=== PATIENT | female | born 1990 | race African-American/Black ===

== ENCOUNTER 2016-05-09 09:41 | Emergency (ER) | payer MEDICAID, OTHER ==
[~2016-05-09] VITALS: Ht 152.4 cm; Wt 63.0 kg
[~2016-05-09 09:41] MED LIST: HYDR-3533 PO; PERC5TAB12 PO
[2016-05-09 09:52] VITALS: BP 118/90; PULSE 88; RESP 16; TEMP 99.1; O2SAT 100
[2016-05-09] MEDS ORDERED: SODIUM CHLOR 0.9% 1000 ML INJ 1,000 ML IV ONE (11:00)
[2016-05-09] MEDS ORDERED: ONDANSETRON HCL 4 MG/2 ML VIAL IV PUSH ONE (11:00)
[2016-05-09 11:08] LABS: GLUCOSE,URINE NEG (NEG); KETONE, URINE NEG (NEG); NITRITE,URINE NEG (NEG)
[2016-05-09 11:13] LABS: AUTOMATED NEUTROPHIL # 6.6 TH/MM3 (1.8-7.7); BASOPHIL # 0.1 TH/MM3 (0-0.2); BASOPHIL % 0.6 % (0.0-2.0); EOSINOPHIL # 0.1 TH/MM3 (0-0.4); EOSINOPHIL % 0.6 % (0.0-4.0); HEMATOCRIT 40.4 % (35.0-46.0); LYMPH % 19.1 % (9.0-44.0); LYMPHOCYTE # 1.7 TH/MM3 (1.0-4.8); MEAN CELL VOLUME 74.2 FL (80.0-100.0); MEAN CORPUSCULAR HEMOGLOBIN 25.1 PG (27.0-34.0); MEAN CORPUSCULAR HGB CONC 33.9 % (32.0-36.0); MONO % 3.1 % (0.0-8.0); NEUT % 76.6 % (16.0-70.0); PLATELET COUNT 238 TH/MM3 (150-450); RED BLOOD COUNT 5.44 MIL/MM3 (4.00-5.30); RED CELL DISTRIBUTION WIDTH 13.7 % (11.6-17.2); WHITE BLOOD COUNT 8.8 TH/MM3 (4.0-11.0)
[2016-05-09 11:15] LABS: BLOOD, URINE MOD (NEG)
[2016-05-09 11:19] LABS: MUCUS URINE FEW /lpf (OCC); URINE COLOR YELLOW (YELLW/STRAW); WBC, URINE 0-2 /hpf (0-5)
[2016-05-09 11:19] LABS: CHLORIDE 107 MEQ/L (98-107); POTASSIUM 3.5 MEQ/L (3.5-5.1); SODIUM (NA) 142 MEQ/L (136-145)
[2016-05-09 11:20] LABS: BACTERIA, URINE RARE /hpf; COMMENT (UR) CULT NOT INDICATED; CULTURE IF INDICATED CULT NOT INDICATED; SQUAMOUS EPITHELIAL CELL URINE 0-5 /hpf (0-5)
[2016-05-09 11:25] LABS: HEMO FLAGS DIFF FINAL
[2016-05-09 11:28] LABS: ANION GAP 9 MEQ/L (5-15); BICARBONATE 26.5 MEQ/L (21.0-32.0); BLOOD UREA NITROGEN 13 MG/DL (7-18)
[2016-05-09 11:31] LABS: ALT (GPT) 18 U/L (10-53); AST (GOT) 20 U/L (15-37); GLOMERULAR FILTRATION RATE 118 ML/MIN (>89)
[2016-05-09 11:32] LABS: TOTAL BILIRUBIN ADULT 0.7 MG/DL (0.2-1.0)
[2016-05-09 11:34] LABS: ALKALINE PHOSPHATASE 80 U/L (45-117)
--- NOTE | 2016-05-09 12:04 | PD ---
HPI Chief Complaint: GI Complaint Time Seen by Provider: 10:44 Travel History International Travel<30 days: No Contact w/Intl Traveler<30days: No Traveled to known affect area: No History of Present Illness HPI Patient is a 25 year old female who comes in complaining of nausea. She says it started last night and she tried to make herself vomit without success. She says she last moved her bowels 2 days ago and it was normal. She is not having any abdominal pain. Her LMP was April 12. She denies dysuria or discharge. PFSH Past Medical History Anxiety: Yes Depression: No Cancer: No Cardiovascular Problems: No Diabetes: No Diminished Hearing: No Endocrine: No Genitourinary: No Hepatitis: No Hiatal Hernia: No Immune Disorder: No Musculoskeletal: No Neurologic: No Psychiatric: No Reproductive: No Respiratory: No Immunizations Current: Yes Migraines: Yes Thyroid Disease: No Tetanus Vaccination: < 5 Years Influenza Vaccination: Yes ?: Unknown : 5 Para: 1 Miscarriage: 2 : 1 Past Surgical History AICD: No Joint Replacement: No Pacemaker: No Other Surgery: Yes (FLEXOR TENDON R HAND) Social History Alcohol Use: Yes (social) Tobacco Use: No Substance Use: No Allergies-Medications (Allergen,Severity, Reaction): Coded Allergies: No Known Allergies (Verified , 05/09/16) Reported Meds & Prescriptions Reported Meds & Active Scripts Active Zofran Odt (Ondansetron Odt) 4 Mg Tab 4 Mg SL Q6HR PRN Review of Systems Except as stated in HPI: all other systems reviewed are Neg General / Constitutional: No: Fever, Chills HENT: No: Headaches, Lightheadedness Cardiovascular: No: Chest Pain or Discomfort Respiratory: No: Shortness of Breath Gastrointestinal: Positive: Nausea, No: Vomiting, Abdominal Pain Genitourinary: No: Dysuria, Flank Pain Musculoskeletal: No: Edema, Pain Skin: No Rash, No Change in Pigmentation Neurologic: No: Weakness, Dizziness Physical Exam Narrative GENERAL: Awake and alert in no acute distress. SKIN: Warm and dry. HEAD: Atraumatic. Normocephalic. EYES: Pupils equal and round. No scleral icterus. ENT: . Mucous membranes pink and moist. NECK: Trachea midline. No JVD. CARDIOVASCULAR: Regular rate and rhythm. No murmur appreciated. RESPIRATORY: No accessory muscle use. Clear to auscultation. Breath sounds equal bilaterally. GASTROINTESTINAL: Abdomen soft, non-tender, nondistended. No CVA tenderness. MUSCULOSKELETAL: No obvious deformities. No clubbing. No cyanosis. No edema. NEUROLOGICAL: Awake and alert. No obvious cranial nerve deficits. Motor grossly within normal limits. Normal speech. PSYCHIATRIC: Appropriate mood and affect; insight and judgment normal. Data Data Last Documented VS Vital Signs Date Time Temp Pulse Resp B/P Pulse Ox O2 Delivery O2 Flow Rate FiO2 05/09/16 12:39 98 17 113/80 100 05/09/16 09:52 99.1 Orders Urinalysis - C+S If Indicated (05/09/16 09:56) Ed Urine Pregnancytest Poc (05/09/16 09:56) Complete Blood Count With Diff (05/09/16 10:51) Comprehensive Metabolic Panel (05/09/16 10:51) Sodium Chlor 0.9% 1000 Ml Inj (Ns 1000 M (05/09/16 11:00) Ondansetron Inj (Zofran Inj) (05/09/16 11:00) Labs Laboratory Tests Test 05/09/16 05/09/16 10:50 11:00 Urine Collection Type Urine Color YELLOW Urine Turbidity CLEAR Urine pH 6.0 Urine Specific [place] 1.030 Urine Protein NEG mg/dL Urine Glucose (UA) NEG mg/dL Urine Ketones NEG mg/dL Urine Occult Blood MOD Urine Nitrite NEG Urine Bilirubin NEG Urine Leukocyte Esterase NEG Urine RBC 4-9 /hpf Urine WBC 0-2 /hpf Urine Squamous Epithelial 0-5 /hpf Cells Urine Bacteria RARE /hpf Urine Mucus FEW /lpf Microscopic Urinalysis Comment CULT NOT INDICATED White Blood Count 8.8 TH/MM3 Red Blood Count 5.44 MIL/MM3 Hemoglobin 13.7 GM/DL Hematocrit 40.4 % Mean Corpuscular Volume 74.2 FL Mean Corpuscular Hemoglobin 25.1 PG Mean Corpuscular Hemoglobin 33.9 % Concent Red Cell Distribution Width 13.7 % Platelet Count 238 TH/MM3 Mean Platelet Volume 9.7 FL Neutrophils (%) (Auto) 76.6 % Lymphocytes (%) (Auto) 19.1 % Monocytes (%) (Auto) 3.1 % Eosinophils (%) (Auto) 0.6 % Basophils (%) (Auto) 0.6 % Neutrophils # (Auto) 6.6 TH/MM3 Lymphocytes # (Auto) 1.7 TH/MM3 Monocytes # (Auto) 0.3 TH/MM3 Eosinophils # (Auto) 0.1 TH/MM3 Basophils # (Auto) 0.1 TH/MM3 CBC Comment DIFF FINAL Differential Comment Sodium Level 142 MEQ/L Potassium Level 3.5 MEQ/L Chloride Level 107 MEQ/L Carbon Dioxide Level 26.5 MEQ/L Anion Gap 9 MEQ/L Blood Urea Nitrogen 13 MG/DL Creatinine 0.73 MG/DL Estimat Glomerular Filtration 118 ML/MIN Rate Random Glucose 88 MG/DL Calcium Level 8.3 MG/DL Total Bilirubin 0.7 MG/DL Aspartate Amino Transf 20 U/L (AST/SGOT) Alanine Aminotransferase 18 U/L (ALT/SGPT) Alkaline Phosphatase 80 U/L Total Protein 7.5 GM/DL Albumin 3.4 GM/DL [facility] Medical Decision Making Medical Screen Exam Complete: Yes Emergency Medical Condition: Yes Medical Record Reviewed: Yes Differential Diagnosis Gastroenteritis versus UTI versus pyelonephritis versus gastritis Narrative Course Patient is a 25-year-old female who comes in complaining of nausea. Exam shows no tenderness to the abdomen on palpation. Labs sent show no acute abnormalities. Urinalysis is positive for blood. It is very likely that patient is about to start her menstrual period. In with improvement of her symptoms. She is able to tolerate water without vomiting. Patient will be discharged with a prescription for a few Zofran. Advised to follow-up with her doctor. She says she has a referral to gastroenterology, I advised her to make this appointment. Advised to return to the ED as needed for any worsening symptoms. Diagnosis Primary Impression: Nausea Patient Instructions: Acute Nausea and Vomiting (ED), General Instructions Additional Instructions: Follow up with your doctor and gastroenterology. Eat a bland diet and drink plenty of fluids. You can take Zofran as needed for nausea. Return to the ED as needed for any worsening symptoms. Scripts Ondansetron Odt (Zofran Odt)4 Mg Tab4 Mg SL Q6HR PRN (Nausea/Vomiting) #10 TAB Ref 0 Prov:Lamar Zamora MD 05/09/16 Disposition: 01 DISCHARGE HOME Condition: Stable Lamar Zamora MD May 09, 2016 12:04
[2016-05-09] MEDS ORDERED: ZOFR4TAB3 SL (12:17)
[2016-05-09 12:39] VITALS: BP 113/80
== END 2016-05-09 12:44 | disposition home or self-care (01) ==
LOC: PHED 09:41
DX: R11.0 Nausea (principal); Z86.69 Personal history of other diseases of the nervous system and sense organs; Z86.59 Personal history of other mental and behavioral disorders
CPT/HCPCS: 80053; 81001; 84703; 85025; 96361; 96374; 99283; J2405; J7030

== ENCOUNTER 2016-10-21 03:07 | Emergency (ER) | payer OTHER, MEDICAID ==
[~2016-10-21] VITALS: Ht 152.4 cm; Wt 68.5 kg
[~2016-10-21 03:07] MED LIST changes: -HYDR-3533 PO; -PERC5TAB12 PO; +ZOFR4TAB3 SL
[2016-10-21 03:15] VITALS: BP 102/69; PULSE 96; RESP 18; TEMP 98.4; O2SAT 100
[2016-10-21] MEDS ORDERED: PREN1TAB58 PO (03:33)
[2016-10-21 03:45] VITALS: BP 106/77; PULSE 97; RESP 16; O2SAT 98
--- NOTE | 2016-10-21 04:07 | PD ---
HPI Chief Complaint: Cold / Flu Symptoms Time Seen by Provider: 03:58 Travel History International Travel<30 days: No Contact w/Intl Traveler<30days: No Traveled to known affect area: No History of Present Illness HPI 26 year-old female presents to the emergency department by private transportation for complaint of cold symptoms. Patient has had upper respiratory symptoms for the past few days and was told by her etl lead she could take Tylenol. Patient states she's taken a dose of Tylenol and does not feel improved. Patient complains of nasal congestion sore throat and nonproductive cough. No report of shortness of breath or wheezing. No report of nausea vomiting area no report of abdominal pain. No reported dysuria frequency urgency or flank pain. No report of vaginal bleeding or vaginal discharge. Patient reports she is 3 para 2 AB 0. PFSH Past Medical History Narrative Medical Anxiety, migraines; flexor tendon repair; no tobacco use nursing notes reviewed Anxiety: Yes Depression: No Cancer: No Cardiovascular Problems: No Diabetes: No Diminished Hearing: No Endocrine: No Genitourinary: No Hepatitis: No Hiatal Hernia: No Immune Disorder: No Musculoskeletal: No Neurologic: No Psychiatric: No Reproductive: No Respiratory: No Immunizations Current: Yes Migraines: Yes Thyroid Disease: No Influenza Vaccination: Yes ?: LMP: 06/24/16 : 4 Para: 2 Miscarriage: 1 : 1 Past Surgical History AICD: No Joint Replacement: No Pacemaker: No Other Surgery: Yes (FLEXOR TENDON R HAND) Social History Alcohol Use: No Tobacco Use: No Substance Use: No Allergies-Medications (Allergen,Severity, Reaction): Coded Allergies: No Known Allergies (Verified , 10/21/16) Reported Meds & Prescriptions Reported Meds & Active Scripts Active Zofran Odt (Ondansetron Odt) 4 Mg Tab 4 Mg SL Q6HR PRN Reported Vitamin Formula Tb ( Vit/Iron Fumarate/FA) 1 Each Tablet 1 Tab PO DAILY Review of Systems Except as stated in HPI: all other systems reviewed are Neg General / Constitutional: No: Fever, Chills HENT: Positive: Sore Throat, Rhinorrhea, Congestion Cardiovascular: No: Chest Pain or Discomfort Respiratory: Positive: Cough, No: Shortness of Breath, Wheezing, Pleuritic Pain Gastrointestinal: No: Nausea, Vomiting, Diarrhea, Abdominal Pain Genitourinary: No: Dysuria, Pelvic Pain, Flank Pain, Discharge, Vaginal Bleeding Musculoskeletal: No: Myalgias, Arthralgias Skin: No Rash Neurologic: No: Weakness Psychiatric: No: Anxiety Endocrine: No: Heat Intolerance Hematologic/Lymphatic: No: Easy Bruising Physical Exam Narrative GENERAL: Well-developed well-nourished female in no acute distress no respiratory distress SKIN: Warm and dry. HEAD: Normocephalic. EYES: No scleral icterus. No injection or drainage. ENT mucous members moist airway is patent mild posterior pharyngeal erythema no exudate of change no edema tympanic membranes are redness dullness or loss of landmarks NECK: Supple, trachea midline. No JVD or lymphadenopathy. CARDIOVASCULAR: Regular rate and rhythm without murmurs, gallops, or rubs. RESPIRATORY: Breath sounds equal bilaterally. No accessory muscle use. GASTROINTESTINAL: Abdomen soft, non-tender, nondistended. Nontender to palpation heart tones 156. MUSCULOSKELETAL: No cyanosis, or edema. BACK: Nontender without obvious deformity. No CVA tenderness. Data Data Last Documented VS Vital Signs Date Time Temp Pulse Resp B/P Pulse Ox O2 Delivery O2 Flow Rate FiO2 10/21/16 04:45 95 16 102/65 100 Room Air 10/21/16 03:15 98.4 Orders Group A Rapid Strep Screen (10/21/16 04:10) Strep Culture (Group A) (10/21/16 04:12) [facility] Medical Decision Making Medical Screen Exam Complete: Yes Emergency Medical Condition: Yes Medical Record Reviewed: Yes Interpretation(s) RSA: negative Differential Diagnosis Viral syndrome, sinusitis, bronchitis, pneumonia, UTI Narrative Course Patient was sore throat with recent URI symptoms; rapid strep antigen and specimen collected Patient was stable vital signs; heart tones 156 Patient aware that rapid strep test is negative: Patient feeling well. Patient is stable for outpatient management. Diagnosis Primary Impression: Viral syndrome Additional Impression: Qualified Code: Z3A.15 - 15 weeks gestation of Referrals: Personnel Officer call for appointment Patient Instructions: General Instructions Departure Forms: Tests/Procedures, Work Release Special Instructions: no work x 2 days Additional Instructions: Increase fluid hydration Use [id number] saline nasal drops for nasal congestion as needed Take acetaminophen/Tylenol as often as every 4-6 hours as needed for fever 100.4 F or greater or for minor discomfort Use cool mist vaporizer at bedside Follow-up with primary care provider call office in a.m. to schedule follow-up appointment No work 2 days Continue vitamins daily Return to the emergency department for change in condition or any concerns such as fever or pain Med/Other Pt SpecificInfo: No Change to Meds Disposition: 01 DISCHARGE HOME Condition: Stable Joanne Monae MD Oct 21, 2016 04:07
[2016-10-21 04:45] VITALS: BP 102/65; PULSE 95; RESP 16; O2SAT 100
== END 2016-10-21 04:55 | disposition home or self-care (01) ==
LOC: PHED 03:07
DX: O98.512 Other viral diseases complicating pregnancy, second trimester (principal); O99.512 Diseases of the respiratory system complicating pregnancy, second trimester; B34.9 Viral infection, unspecified; J02.9 Acute pharyngitis, unspecified; Z3A.15 15 weeks gestation of pregnancy
CPT/HCPCS: 87081; 87880; 99283

== ENCOUNTER 2016-11-03 10:12 | Emergency (ER) | payer OTHER, MEDICAID ==
[~2016-11-03] VITALS: Ht 152.4 cm; Wt 68.5 kg
[~2016-11-03 10:12] MED LIST changes: +PREN1TAB58 PO
[2016-11-03 10:15] VITALS: BP 110/72; PULSE 110; RESP 18; TEMP 98.5; O2SAT 100
[2016-11-03] MEDS ORDERED: TYLE325T PO (10:21)
[2016-11-03] MEDS ORDERED: SODIUM CHLOR 0.9% 1000 ML INJ 1,000 ML IV ONE (10:45)
[2016-11-03 11:17] LABS: AUTOMATED NEUTROPHIL # 4.9 TH/MM3 (1.8-7.7); BACTERIA, URINE FEW /hpf; BASOPHIL % 0.4 % (0.0-2.0); BLOOD, URINE NEG (NEG); EOSINOPHIL # 0.3 TH/MM3 (0-0.4); EOSINOPHIL % 3.8 % (0.0-4.0); GLUCOSE,URINE NEG (NEG); HEMO FLAGS DIFF FINAL; HYALINE CAST, URINE 2 /lpf (RARE); KETONE, URINE NEG (NEG); LYMPH % 17.1 % (9.0-44.0); LYMPHOCYTE # 1.2 TH/MM3 (1.0-4.8); MEAN CELL VOLUME 74.7 FL (80.0-100.0); MEAN CORPUSCULAR HEMOGLOBIN 25.4 PG (27.0-34.0); MONO % 9.9 % (0.0-8.0); MUCUS URINE FEW /lpf (OCC); NEUT % 68.8 % (16.0-70.0); NITRITE,URINE NEG (NEG); PH, URINE 6.5 (5.0-8.5); PLATELET COUNT 175 TH/MM3 (150-450); RED BLOOD COUNT 4.15 MIL/MM3 (4.00-5.30); SQUAMOUS EPITHELIAL CELL URINE 32 /hpf (0-5); URINE COLOR YELLOW (YELLW/STRAW); WHITE BLOOD COUNT 7.1 TH/MM3 (4.0-11.0)
[2016-11-03 11:23] LABS: COMMENT (UR) CULT NOT INDICATED; CULTURE IF INDICATED CULT NOT INDICATED
[2016-11-03 11:25] LABS: BICARBONATE 25.3 MEQ/L (21.0-32.0); POTASSIUM 3.7 MEQ/L (3.5-5.1)
[2016-11-03] MEDS ORDERED: ZITHTAB PO (11:31)
--- NOTE | 2016-11-03 11:32 | PD ---
HPI Chief Complaint: Cold / Flu Symptoms Time Seen by Provider: 10:34 Travel History International Travel<30 days: No Contact w/Intl Traveler<30days: No Traveled to known affect area: No History of Present Illness HPI 26 year old female came to the emergency room with history of cough that's been going on for past 2 weeks. Patient is 19 weeks . She saw her OB couple days ago and said everything was fine with her baby. Patient has not measured her temperature but feels chills and cold every now and then. She has been taking Tylenol for it. Last dose of Tylenol was 11 PM last night. Vital signs showed some tachycardia and afebrile. She seems uncomfortable. She says she has some posttussive emesis after she coughs. She is otherwise a healthy person. Patient works as an employee in the hospital. She is not in direct contact with any patients. Her flu shot was up-to-date. PFSH Past Medical History Narrative Medical List of her past medical, surgical, social and family history as reviewed from the nursing note. Anxiety: Yes Depression: No Cancer: No Cardiovascular Problems: No Diabetes: No Diminished Hearing: No Endocrine: No Genitourinary: No Hepatitis: No Hiatal Hernia: No Immune Disorder: No Musculoskeletal: No Neurologic: No Psychiatric: No Reproductive: No Respiratory: No Immunizations Current: Yes Migraines: Yes Thyroid Disease: No ?: LMP: june : 4 Para: 2 Miscarriage: 1 : 1 Past Surgical History AICD: No Joint Replacement: No Pacemaker: No Other Surgery: Yes (FLEXOR TENDON R HAND) Social History Alcohol Use: No Tobacco Use: No Substance Use: No Allergies-Medications (Allergen,Severity, Reaction): Coded Allergies: No Known Allergies (Verified , 11/03/16) Comments No known drug allergies. Reported Meds & Prescriptions Reported Meds & Active Scripts Active Zithromax Z-Jason (Azithromycin) 250 Mg Dspk 250 Mg PO DIRECTED 500 MG (2 tabs) day 1, then 1 tab days 2-5. Zofran Odt (Ondansetron Odt) 4 Mg Tab 4 Mg SL Q6HR PRN Reported Tylenol (Acetaminophen) 325 Mg Tab 325 Mg PO Q6H PRN Vitamin Formula Tb ( Vit/Iron Fumarate/FA) 1 Each Tablet 1 Tab PO DAILY Narrative Medication List of her home medications reviewed from the nursing note. Review of Systems Except as stated in HPI: all other systems reviewed are Neg Physical Exam Narrative GENERAL: Awake, alert, moderate distress SKIN: Focused skin assessment warm/dry. HEAD: Atraumatic. Normocephalic. EYES: Pupils equal and round. No scleral icterus. No injection or drainage. ENT: No nasal bleeding or discharge. Mucous membranes pink and moist. NECK: Trachea midline. No JVD. CARDIOVASCULAR: Regular rate and rhythm. No murmur appreciated. RESPIRATORY: No accessory muscle use. Clear to auscultation. Breath sounds equal bilaterally. GASTROINTESTINAL: Abdomen soft, non-tender, nondistended. Hepatic and splenic margins not palpable. Gravid uterus about 20 weeks MUSCULOSKELETAL: No obvious deformities. No clubbing. No cyanosis. No edema. NEUROLOGICAL: Awake and alert. No obvious cranial nerve deficits. Motor grossly within normal limits. Normal speech. PSYCHIATRIC: Appropriate mood and affect; insight and judgment normal. Data Data Last Documented VS Vital Signs Date Time Temp Pulse Resp B/P Pulse Ox O2 Delivery O2 Flow Rate FiO2 11/03/16 10:15 98.5 110 18 110/72 100 Room Air Orders Complete Blood Count With Diff (11/03/16 10:38) Basic Metabolic Panel (Bmp) (11/03/16 10:38) Influenzae A/B Antigen (11/03/16 10:38) Urinalysis - C+S If Indicated (11/03/16 10:38) Sodium Chlor 0.9% 1000 Ml Inj (Ns 1000 M (11/03/16 10:45) Labs Laboratory Tests Test 11/03/16 10:45 White Blood Count 7.1 TH/MM3 Red Blood Count 4.15 MIL/MM3 Hemoglobin 10.5 GM/DL Hematocrit 31.0 % Mean Corpuscular Volume 74.7 FL Mean Corpuscular Hemoglobin 25.4 PG Mean Corpuscular Hemoglobin 34.0 % Concent Red Cell Distribution Width 14.0 % Platelet Count 175 TH/MM3 Mean Platelet Volume 9.2 FL Neutrophils (%) (Auto) 68.8 % Lymphocytes (%) (Auto) 17.1 % Monocytes (%) (Auto) 9.9 % Eosinophils (%) (Auto) 3.8 % Basophils (%) (Auto) 0.4 % Neutrophils # (Auto) 4.9 TH/MM3 Lymphocytes # (Auto) 1.2 TH/MM3 Monocytes # (Auto) 0.7 TH/MM3 Eosinophils # (Auto) 0.3 TH/MM3 Basophils # (Auto) 0.0 TH/MM3 CBC Comment DIFF FINAL Differential Comment Urine Color YELLOW Urine Turbidity HAZY Urine pH 6.5 Urine Specific [place] 1.021 Urine Protein TRACE mg/dL Urine Glucose (UA) NEG mg/dL Urine Ketones NEG mg/dL Urine Occult Blood NEG Urine Nitrite NEG Urine Bilirubin NEG Urine Urobilinogen LESS THAN 2.0 MG/DL Urine Leukocyte Esterase SMALL Urine RBC 4 /hpf Urine WBC 4 /hpf Urine Squamous Epithelial 32 /hpf Cells Urine Bacteria FEW /hpf Urine Hyaline Casts 2 /lpf Urine Mucus FEW /lpf Microscopic Urinalysis Comment CULT NOT INDICATED Sodium Level 139 MEQ/L Potassium Level 3.7 MEQ/L Chloride Level 107 MEQ/L Carbon Dioxide Level 25.3 MEQ/L Anion Gap 7 MEQ/L Blood Urea Nitrogen 4 MG/DL Creatinine 0.52 MG/DL Estimat Glomerular Filtration 172 ML/MIN Rate Random Glucose 88 MG/DL Calcium Level 8.8 MG/DL [facility] Medical Decision Making Medical Screen Exam Complete: Yes Emergency Medical Condition: Yes Medical Record Reviewed: Yes Differential Diagnosis Vital infection, pneumonia, dehydration Narrative Course 11:29 AM patient was given IV fluid bolus. Blood test results of back and within acceptable limits. I'll discharge her home. Because the cough has been going on for 2 weeks put her on antibiotic. Procedures EKG Prior to Arrival: No Diagnosis Primary Impression: Cough Additional Impressions: Post-tussive emesis Qualified Code: Z3A.19 - 19 weeks gestation of Referrals: Primary Care Physician Additional Instructions: Take the medication as per the prescription direction. Try to keep herself hydrated. Follow-up with your primary care by next week if symptoms do not improve. Return to the ER if the condition worsens. Do not take Zofran while on the antibiotics. Med/Other Pt SpecificInfo: Prescription(s) given Scripts Azithromycin (Zithromax Z-Jason)250 Mg [id number] Mg PO DIRECTED #1 DSPK Ref 0 500 MG (2 tabs) day 1, then 1 tab days 2-5. Prov:Zully Calhoun MD 11/03/16 Disposition: 01 DISCHARGE HOME Condition: Stable Zully Calhoun MD Nov 03, 2016 11:32
== END 2016-11-03 11:47 | disposition home or self-care (01) ==
LOC: NEPD 10:12
DX: O26.899 Other specified pregnancy related conditions, unspecified trimester (principal); R05 Cough; O21.9 Vomiting of pregnancy, unspecified; O99.342 Other mental disorders complicating pregnancy, second trimester; F41.9 Anxiety disorder, unspecified; Z3A.19 19 weeks gestation of pregnancy; Z79.899 Other long term (current) drug therapy
CPT/HCPCS: 80048; 81001; 85025; 87804; 99283; J7030

== ENCOUNTER 2016-11-16 18:15 | Emergency (ER) | payer OTHER, MEDICAID ==
[~2016-11-16] VITALS: Ht 152.4 cm; Wt 68.0 kg
[~2016-11-16 18:15] MED LIST changes: +TYLE325T PO; +ZITHTAB PO
[2016-11-16 18:29] VITALS: BP 116/77; PULSE 98; RESP 17; TEMP 98; O2SAT 98
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
--- NOTE | 2016-11-16 19:35 | RADRPT ---
EXAM DATE/TIME: 11/16/2016 19:04 [facility] COMPARISON: No previous studies available for comparison. INDICATIONS : Left knee pain after fall. MEDICAL HISTORY : None. SURGICAL HISTORY : None. ENCOUNTER: Initial ACUITY: 1 day PAIN SCORE: 7/10 LOCATION: Left anterior knee. FINDINGS: Two view examination of the left knee demonstrates no evidence of fracture or dislocation. Bony mine ralization is normal. The suprapatellar soft tissues have a normal configuration. CONCLUSION: 1. No acute findings. Ajay Smith MD on November 16, 2016 at 19:33 Board Certified Radiologist. This report was verified electronically.
--- NOTE | 2016-11-16 19:36 | RADRPT ---
EXAM DATE/TIME: 11/16/2016 19:07 [facility] COMPARISON: No previous studies available for comparison. INDICATIONS : Right knee pain after fall. MEDICAL HISTORY : None. SURGICAL HISTORY : None. ENCOUNTER: Initial ACUITY: 1 day PAIN SCORE: 7/10 LOCATION: Right anterior knee. FINDINGS: Two view examination of the right knee demonstrates no evidence of fracture or dislocation. Bony min eralization is normal. The suprapatellar soft tissues have a normal configuration. CONCLUSION: 1. No acute findings. jAay Smith MD on November 16, 2016 at 19:34 Board Certified Radiologist. This report was verified electronically.
[2016-11-16] MEDS ORDERED: CODE30TA2 PO (20:40)
[2016-11-16] MEDS ORDERED: ZOFR4TAB3 SL (20:40)
[2016-11-16 21:11] VITALS: BP 106/67; PULSE 91; RESP 16; O2SAT 100
== END 2016-11-16 21:42 | disposition home or self-care (01) ==
LOC: NEPD 18:15
DX: S80.219A Abrasion, unspecified knee, initial encounter (principal); V89.2XXA Person injured in unspecified motor-vehicle accident, traffic, initial encounter
CPT/HCPCS: 73560; 99284

== ENCOUNTER 2017-05-15 09:40 | Emergency (ER) | payer MEDICAID, OTHER ==
[~2017-05-15] VITALS: Ht 152.4 cm; Wt 69.0 kg
[~2017-05-15 09:40] MED LIST changes: +CODE30TA2 PO; -TYLE325T PO; -ZITHTAB PO
[2017-05-15 09:43] VITALS: BP 150/88; PULSE 79; RESP 16; TEMP 98.5; O2SAT 100
--- NOTE | 2017-05-15 10:04 | PD ---
HPI Chief Complaint: Nursing Clinical Director Problem/Complaint Time Seen by Provider: 10:04 Travel History International Travel<30 days: No Contact w/Intl Traveler<30days: No Traveled to known affect area: No History of Present Illness HPI 26-year-old female came to the emergency room with history of vaginal bleeding that started 4 days ago. Patient is 5 weeks and had bleed for 2 weeks after the delivery and then it stopped for 2 weeks. However she started bleeding again 4 days ago and has been passing large clots. She is changing her pad/tampon every hour and a half to 2 hours. No history of dizziness or lightheadedness. Patient thought it seemed odd and hence she came to the emergency room. This is her third baby and the previous 2 pregnancies did not go like this. Patient has not talked to her OB about this. Vital signs are stable otherwise. She does not appear to be in any significant distress. Patient is not on any blood thinners. Patient is not breast- feeding. She says she has been doing regular household activities but thinks she may be overdoing it a little. PFSH Past Medical History Narrative Medical List of her past medical, surgical, social and family history is reviewed from the nursing note. Anxiety: Yes Depression: No Cancer: No Cardiovascular Problems: No Diabetes: No Diminished Hearing: No Endocrine: No Genitourinary: No Hepatitis: No Hiatal Hernia: No Immune Disorder: No Musculoskeletal: No Neurologic: No Psychiatric: No Reproductive: No Respiratory: No Immunizations Current: Yes Migraines: Yes Thyroid Disease: No ?: Not : 4 Para: 2 Miscarriage: 1 : 1 Past Surgical History AICD: No Joint Replacement: No Pacemaker: No Other Surgery: Yes (FLEXOR TENDON R HAND) Social History Alcohol Use: No Tobacco Use: No Substance Use: No Allergies-Medications (Allergen,Severity, Reaction): Coded Allergies: No Known Allergies (Verified Adverse Reaction, Unknown, 05/15/17) Comments No known drug allergies. Reported Meds & Prescriptions Reported Meds & Active Scripts Active Ferrous Sulfate 325 Mg (65 Mg Iron) Tablet 325 Mg PO DAILY Ibuprofen 400 Mg Tab 400 Mg PO Q6H PRN Reported 19 ( Vit W/ Ferrous Fumara) 29 Mg Iron-1 Mg Chw Narrative Medication List of her home medications reviewed from the nursing note. Review of Systems Except as stated in HPI: all other systems reviewed are Neg Genitourinary: Positive: Vaginal Bleeding Physical Exam Narrative GENERAL: Awake, alert, no obvious distress SKIN: Focused skin assessment warm/dry. HEAD: Atraumatic. Normocephalic. EYES: Pupils equal and round. No scleral icterus. No injection or drainage. ENT: No nasal bleeding or discharge. Mucous membranes pink and moist. NECK: Trachea midline. No JVD. CARDIOVASCULAR: Regular rate and rhythm. No murmur appreciated. RESPIRATORY: No accessory muscle use. Clear to auscultation. Breath sounds equal bilaterally. GASTROINTESTINAL: Abdomen soft, non-tender, nondistended. Hepatic and splenic margins not palpable. MUSCULOSKELETAL: No obvious deformities. No clubbing. No cyanosis. No edema. NEUROLOGICAL: Awake and alert. No obvious cranial nerve deficits. Motor grossly within normal limits. Normal speech. PSYCHIATRIC: Appropriate mood and affect; insight and judgment normal. Data Data Last Documented VS Orders Orders Urinalysis - C+S If Indicated (05/15/17 09:45) Ed Urine Pregnancytest Poc (05/15/17 09:45) Beta Hcg (Quant/Titer) (05/15/17 10:10) Complete Blood Count With Diff (05/15/17 10:10) Basic Metabolic Panel (Bmp) (05/15/17 10:10) Us Pelvis Comp Nursing Clinical Director/Non-Preg (05/15/17 ) Sodium Chlor 0.9% 1000 Ml Inj (Ns 1000 M (05/15/17 10:15) Prothrombin Time / Inr (Pt) (05/15/17 10:10) Ed Discharge Order (05/15/17 11:34) Labs Laboratory Tests Test 05/15/17 09:45 05/15/17 10:28 Urine Collection Type CLEAN CATCH Urine Color RED Urine Turbidity MARKED Urine pH 5.5 Urine Specific Rhame 1.019 Urine Protein 30 mg/dL Urine Glucose (UA) NEG mg/dL Urine Ketones NEG mg/dL Urine Occult Blood LARGE Urine Nitrite NEG Urine Bilirubin NEG Urine Leukocyte Esterase TRACE Urine RBC INNUM /hpf Urine WBC 0-2 /hpf Urine Squamous Epithelial Cells 0-5 /hpf Microscopic Urinalysis Comment CULT NOT INDICATED Urine Collection Time 0945 White Blood Count 6.2 TH/MM3 Red Blood Count 4.86 MIL/MM3 Hemoglobin 11.9 GM/DL Hematocrit 36.8 % Mean Corpuscular Volume 75.7 FL Mean Corpuscular Hemoglobin 24.5 PG Mean Corpuscular Hemoglobin Concent 32.4 % Red Cell Distribution Width 15.1 % Platelet Count 191 TH/MM3 Mean Platelet Volume 9.2 FL Neutrophils (%) (Auto) 60.5 % Lymphocytes (%) (Auto) 27.9 % Monocytes (%) (Auto) 6.7 % Eosinophils (%) (Auto) 4.2 % Basophils (%) (Auto) 0.7 % Neutrophils # (Auto) 3.8 TH/MM3 Lymphocytes # (Auto) 1.7 TH/MM3 Monocytes # (Auto) 0.4 TH/MM3 Eosinophils # (Auto) 0.3 TH/MM3 Basophils # (Auto) 0.0 TH/MM3 CBC Comment AUTO DIFF Differential Comment AUTO DIFF CONFIRMED Platelet Estimate NORMAL Platelet Morphology Comment NORMAL Prothrombin Time 10.7 SEC Prothromb Time International Ratio 1.1 RATIO Blood Urea Nitrogen 10 MG/DL Creatinine 0.61 MG/DL Random Glucose 91 MG/DL Calcium Level 8.0 MG/DL Sodium Level 140 MEQ/L Potassium Level 3.7 MEQ/L Chloride Level 108 MEQ/L Carbon Dioxide Level 26.2 MEQ/L Anion Gap 6 MEQ/L Estimat Glomerular Filtration Rate 143 ML/MIN Human Chorionic Gonadotropin, Quant LESS THAN 1 MIU/ML MDM Medical Decision Making Medical Screen Exam Complete: Yes Emergency Medical Condition: Yes Medical Record Reviewed: Yes Differential Diagnosis Vaginal bleeding and menstrual cycle, retained products of conception Narrative Course 10:51 AM awaiting for blood test result and the ultrasound to be done and resulted. 11:31 AM ultrasound does not show any retained products of conception. Blood tests are within normal limit. Patient will be discharged home with a prescription for Motrin and iron. Procedures EKG Prior to Arrival: No Diagnosis Primary Impression: Menorrhagia Qualified Codes: N92.2 - Excessive menstruation at puberty Referrals: Primary Care Physician Additional Instructions: Please follow-up with your OB. Take the medication as per the prescription direction. Do not lift anything heavy and try to get some rest. Drink lots of fluid. ER if condition worsens or any other new concerns. Med/Other Pt SpecificInfo: Prescription(s) given Scripts Ferrous Sulfate (Ferrous Sulfate) 325 Mg (65 Mg Iron) Tablet 325 MG PO DAILY for Nutritional Supplement, #30 TAB 0 Refills Prov: Zully Calhoun MD 05/15/17 Ibuprofen (Ibuprofen) 400 Mg Tab 400 MG PO Q6H Y for PAIN SCALE 1 TO 4, #30 TAB 0 Refills Prov: Zully Calhoun MD 05/15/17 Disposition: 01 DISCHARGE HOME Condition: Stable Zully Calhoun MD May 15, 2017 10:04
[2017-05-15] MEDS ORDERED: PRENCHW (10:05)
[2017-05-15 10:13] LABS: BILIRUBIN, URINE NEG (NEG); BLOOD, URINE LARGE (NEG); GLUCOSE,URINE NEG (NEG); KETONE, URINE NEG (NEG); NITRITE,URINE NEG (NEG); PH, URINE 5.5 (5.0-8.5); URINE LEUKOCYTE ESTERASE TRACE (NEG)
[2017-05-15] MEDS ORDERED: SODIUM CHLOR 0.9% 1000 ML INJ 1,000 ML IV ONE (10:15)
[2017-05-15 10:26] LABS: RBC, URINE INNUM /hpf (0-3); SQUAMOUS EPITHELIAL CELL URINE 0-5 /hpf (0-5); URINE COLOR RED (YELLW/STRAW); WBC, URINE 0-2 /hpf (0-5)
[2017-05-15 10:40] LABS: AUTOMATED NEUTROPHIL # 3.8 TH/MM3 (1.8-7.7); BASOPHIL % 0.7 % (0.0-2.0); EOSINOPHIL # 0.3 TH/MM3 (0-0.4); EOSINOPHIL % 4.2 % (0.0-4.0); HEMATOCRIT 36.8 % (35.0-46.0); HEMOGLOBIN 11.9 GM/DL (11.6-15.3); LYMPH % 27.9 % (9.0-44.0); LYMPHOCYTE # 1.7 TH/MM3 (1.0-4.8); MEAN CELL VOLUME 75.7 FL (80.0-100.0); MEAN CORPUSCULAR HEMOGLOBIN 24.5 PG (27.0-34.0); MEAN CORPUSCULAR HGB CONC 32.4 % (32.0-36.0); MEAN PLATELET VOLUME 9.2 FL (7.0-11.0); MONO % 6.7 % (0.0-8.0); MONOCYTE # 0.4 TH/MM3 (0-0.9); NEUT % 60.5 % (16.0-70.0); PLATELET COUNT 191 TH/MM3 (150-450); RED BLOOD COUNT 4.86 MIL/MM3 (4.00-5.30); RED CELL DISTRIBUTION WIDTH 15.1 % (11.6-17.2); WHITE BLOOD COUNT 6.2 TH/MM3 (4.0-11.0)
[2017-05-15 10:53] LABS: CHLORIDE 108 MEQ/L (98-107); SODIUM (NA) 140 MEQ/L (136-145)
[2017-05-15 10:56] LABS: BICARBONATE 26.2 MEQ/L (21.0-32.0); BLOOD UREA NITROGEN 10 MG/DL (7-18); GLUCOSE,RANDOM 91 MG/DL (74-106); INTERNATIONAL NORMALIZED RATIO 1.1 RATIO; PROTHROMBIN TIME - PATIENT 10.7 SEC (9.8-11.6)
[2017-05-15 10:59] LABS: CREATININE 0.61 MG/DL (0.50-1.00); GLOMERULAR FILTRATION RATE 143 ML/MIN (>89)
--- NOTE | 2017-05-15 11:27 | RADRPT ---
EXAM DATE/TIME: 05/15/2017 10:49 [facility] COMPARISON: No previous studies available for comparison. INDICATIONS : Bleeding 5 weeks post vaginal delivery. MEDICAL HISTORY : 5 weeks post pardum. SURGICAL HISTORY : Right hand surgery. ENCOUNTER: Initial ACUITY: 1 day PAIN SCORE: 0/10 LOCATION: Right pelvis MEASUREMENTS: UTERUS: 11.3 x 5.6 x 7.2 cm ENDOMETRIAL STRIPE: 7 mm RIGHT OVARY: 3.2 x 1.8 x 2.1 cm LEFT OVARY: 3.7 x 1.4 x 1.7 cm FINDINGS: UTERUS: There is a small amount of fluid in the endometrial cavity and in the endocervical canal. Some blood is seen in the vagina. RIGHT OVARY: Ovary contains no mass or significant cystic lesion. LEFT OVARY: Ovary contains no mass or significant cystic lesion. MISCELLANEOUS: Trace cul-de-sac fluid CONCLUSION: Small volume of fluid in the endometrial cavity and vagina. Minimal free fluid. Amari Tucker MD on May 15, 2017 at 11:23 Board Certified Radiologist. This report was verified electronically.
[2017-05-15] MEDS ORDERED: FERR325T18 PO (11:33)
[2017-05-15] MEDS ORDERED: IBUP1TAB5 PO (11:33)
== END 2017-05-15 11:50 | disposition home or self-care (01) ==
LOC: PHED 09:40
DX: N92.0 Excessive and frequent menstruation with regular cycle (principal)
CPT/HCPCS: 76856; 80048; 81001; 84702; 84703; 85025; 85610; 96360; 99284; J7030

== ENCOUNTER 2017-09-20 17:47 | Emergency (ER) | payer MEDICAID ==
[~2017-09-20] VITALS: Ht 152.4 cm; Wt 75.0 kg
[~2017-09-20 17:47] MED LIST changes: -CODE30TA2 PO; +FERR325T18 PO; +IBUP1TAB5 PO; -PREN1TAB58 PO; +PRENCHW; -ZOFR4TAB3 SL
[2017-09-20 18:06] VITALS: BP 145/94; PULSE 94; RESP 16; TEMP 98.5; O2SAT 99
[2017-09-20] MEDS ORDERED: CLIN300C5 PO (18:36)
[2017-09-20] MEDS ORDERED: IBUP1TAB7 PO ×2 (18:36→20:25)
--- NOTE | 2017-09-20 18:37 | PD ---
HPI Chief Complaint: Skin Problem Time Seen by Provider: 18:20 Travel History International Travel<30 days: No Contact w/Intl Traveler<30days: No Traveled to known affect area: No History of Present Illness HPI 27-year-old female here with right elbow pain. She reports she developed a small bump to the right elbow which she believed was an insect bite several days ago. The area has become increasingly more red and painful. She was seen in urgent care 2 days ago and diagnosed with skin infection and discharged home with Keflex and Bactrim. She started her antibiotics last night with a total of 2 doses of Bactrim and 4 doses of Keflex. He presents today requesting pain medication because she was not prescribed anything at that visit. She reports continued pain at the site of the elbow. Denies fever but reports chills. Symptom severity is moderate. PFSH Past Medical History Anxiety: Yes Immunizations Current: Yes Migraines: Yes Tetanus Vaccination: > 5 Years Influenza Vaccination: Yes ?: Not LMP: June/ Depo : 4 Para: 2 Miscarriage: 1 : 1 Past Surgical History Other Surgery: Yes (Flexor tendon Rt. hand ) Social History Alcohol Use: No Tobacco Use: No Substance Use: No Allergies-Medications (Allergen,Severity, Reaction): Coded Allergies: No Known Allergies (Verified Adverse Reaction, Unknown, 09/20/17) Reported Meds & Prescriptions Reported Meds & Active Scripts Active Ibuprofen 800 Mg Tab 800 Mg PO Q6HR PRN Reported Keflex (Cephalexin) 500 Mg Capsule 500 Mg PO Q6H Bactrim (Sulfamethoxazole-Trimethoprim) 400-80 Mg Tab 1 Tab PO BID Review of Systems Except as stated in HPI: all other systems reviewed are Neg General / Constitutional: Positive: Fever, Chills Eyes: No: Visual changes HENT: No: Headaches Cardiovascular: No: Chest Pain or Discomfort Respiratory: No: Shortness of Breath Gastrointestinal: No: Abdominal Pain Genitourinary: No: Dysuria Musculoskeletal: Positive: Pain (Right elbow pain) Skin: No Rash Neurologic: No: Weakness Physical Exam Narrative GENERAL: Alert and well-appearing 27-year-old female SKIN: Warmth and erythema over the right elbow HEAD: Normocephalic. EYES: No scleral icterus. No injection or drainage. NECK: Supple CARDIOVASCULAR: Regular rate and rhythm without murmurs, gallops, or rubs. RESPIRATORY: Breath sounds equal bilaterally. No accessory muscle use. GASTROINTESTINAL: Abdomen soft, non-tender, nondistended. MUSCULOSKELETAL: No cyanosis. Right upper extremity: Notable warmth and erythema surrounding the elbow localized to the olecranon bursa. Small open area draining yellow fluid over the olecranon. Range of motion of the elbow intact although full extension of the elbow elicits pain. Palpable distal pulses. Sensation intact. Cap refill intact. Data Data Last Documented VS Vital Signs Date Time Temp Pulse Resp B/P (MAP) Pulse Ox O2 Delivery O2 Flow Rate FiO2 09/20/17 18:06 98.5 94 16 145/94 (111) 99 Orders Orders Basic Metabolic Panel (Bmp) (09/20/17 19:12) Complete Blood Count With Diff (09/20/17 19:12) Lactic Acid (09/20/17 19:12) Iv Access Insert/Monitor (09/20/17 19:12) Ed Urine Pregnancytest Poc (09/20/17 19:12) Blood Culture (09/20/17 19:12) Wound Culture And Gram Stain (09/20/17 19:12) Elbow, Complete (4 Vws) (09/20/17 ) Ketorolac Inj (Toradol Inj) (09/20/17 20:30) Labs Laboratory Tests Test 09/20/17 19:30 White Blood Count 8.3 TH/MM3 Red Blood Count 5.27 MIL/MM3 Hemoglobin 13.0 GM/DL Hematocrit 39.9 % Mean Corpuscular Volume 75.6 FL Mean Corpuscular Hemoglobin 24.7 PG Mean Corpuscular Hemoglobin Concent 32.7 % Red Cell Distribution Width 14.5 % Platelet Count 224 TH/MM3 Mean Platelet Volume 9.4 FL Neutrophils (%) (Auto) 65.9 % Lymphocytes (%) (Auto) 26.4 % Monocytes (%) (Auto) 5.2 % Eosinophils (%) (Auto) 1.0 % Basophils (%) (Auto) 1.5 % Neutrophils # (Auto) 5.5 TH/MM3 Lymphocytes # (Auto) 2.2 TH/MM3 Monocytes # (Auto) 0.4 TH/MM3 Eosinophils # (Auto) 0.1 TH/MM3 Basophils # (Auto) 0.1 TH/MM3 CBC Comment AUTO DIFF Blood Urea Nitrogen 7 MG/DL Creatinine 0.77 MG/DL Random Glucose 82 MG/DL Calcium Level 9.0 MG/DL Sodium Level 139 MEQ/L Potassium Level 3.4 MEQ/L Chloride Level 106 MEQ/L Carbon Dioxide Level 22.3 MEQ/L Anion Gap 11 MEQ/L Estimat Glomerular Filtration Rate 109 ML/MIN Lactic Acid Level 1.0 mmol/L MDM Medical Decision Making Medical Screen Exam Complete: Yes Emergency Medical Condition: Yes Interpretation(s) Afebrile. No tachycardia. Normotensive Urine negative CBC: No leukocytosis BMP: Potassium 3.4 replaced orally Lactic acid: 1 X-ray elbow: No acute bony abnormality Differential Diagnosis Cellulitis, abscess, bursitis Narrative Course 27-year-old female here with skin infection versus bursitis versus superficial abscess. Lab studies and x-rays are reassuring. There is no leukocytosis. On reexam patient has improved range of motion of the elbow with minimal pain. Although septic arthritis was considered it seems unlikely in this case. She is to continue the Keflex and Bactrim. Strict return precautions were discussed. Wound cultures pending. Diagnosis Primary Impression: Cellulitis of right arm Referrals: Primary Care Physician Departure Forms: Tests/Procedures, Work Release Enter return to work date: Sep 23, 2017 Additional Instructions: Continue Bactrim and Keflex as directed. Pain medication as needed. Follow up with your primary doctor in 1-2 days. Return to the emergency department if you develop new or worsening symptoms such as fever, increasing pain, decreased range of motion of the arm Scripts Ibuprofen (Ibuprofen) 800 Mg Tab 800 MG PO Q6HR Y for PAIN, #20 TAB 0 Refills Prov: Ami Rivera 09/20/17 Disposition: 01 DISCHARGE HOME Condition: Stable Ami Rivera Sep 20, 2017 18:37
[2017-09-20] MEDS ORDERED: BACT400T PO (18:52)
[2017-09-20] MEDS ORDERED: CEPH-460 PO (18:52)
--- NOTE | 2017-09-20 19:41 | RADRPT ---
EXAM DATE: 09/20/2017 7:36 PM EDT AGE/SEX: 27 years / Female INDICATIONS: Possible bug bite to right posterior elbow. CLINICAL DATA: This is the patient's initial encounter. Patient reports that signs and symptoms have been present for 1 day and indicates a pain score of 5/10. MEDICAL/SURGICAL HISTORY: None. . COMPARISON: No prior exams available for comparison. FINDINGS: Bony structures are intact and in normal alignment. Joints are intact without dislocation or signifi cant arthropathy. Osseous density is normal. Soft tissues are unremarkable. No radiopaque foreign bodies seen. CONCLUSION: No acute bony injury. No foreign body. Electronically signed by: Amari Tucker MD 09/20/2017 7:40 PM EDT
[2017-09-20 19:42] LABS: AUTOMATED NEUTROPHIL # 5.5 TH/MM3 (1.8-7.7); BASOPHIL # 0.1 TH/MM3 (0-0.2); BASOPHIL % 1.5 % (0.0-2.0); EOSINOPHIL # 0.1 TH/MM3 (0-0.4); HEMATOCRIT 39.9 % (35.0-46.0); LYMPH % 26.4 % (9.0-44.0); LYMPHOCYTE # 2.2 TH/MM3 (1.0-4.8); MEAN CELL VOLUME 75.6 FL (80.0-100.0); MEAN CORPUSCULAR HEMOGLOBIN 24.7 PG (27.0-34.0); MEAN CORPUSCULAR HGB CONC 32.7 % (32.0-36.0); MEAN PLATELET VOLUME 9.4 FL (7.0-11.0); MONO % 5.2 % (0.0-8.0); MONOCYTE # 0.4 TH/MM3 (0-0.9); NEUT % 65.9 % (16.0-70.0); PLATELET COUNT 224 TH/MM3 (150-450); RED BLOOD COUNT 5.27 MIL/MM3 (4.00-5.30); RED CELL DISTRIBUTION WIDTH 14.5 % (11.6-17.2); WHITE BLOOD COUNT 8.3 TH/MM3 (4.0-11.0)
[2017-09-20 19:56] LABS: BICARBONATE 22.3 MEQ/L (21.0-32.0)
[2017-09-20 19:59] LABS: CREATININE 0.77 MG/DL (0.50-1.00)
[2017-09-20] MEDS ORDERED: KETOROLAC TROMETHAMINE 30 MG/ML (IVP) VIAL IV PUSH ONE (20:30)
--- NOTE | 2017-09-20 20:40 | PD ---
Physical Exam Narrative I, Dr. Barba, have reviewed the advance practice practitioner's documentation and am in agreement, met with the patient face to face, made the diagnosis, and the medical decision making was done by me. *My assessment and Findings: Cellulitis vs. bursitis 27yo well appearing female here with right elbow pain for 4 days. Pt has a scab in right olecranon and focal tenderness. When the scab was unroofed, there was small clear discharge. No fluctuance to do I&D. Labs reviewed, no leukocytosis. H/H normal. Lactic acid normal. Xray right elbow negative. Pt has no fever. Able to flex and extend elbow joint, so low suspicion for septic joint. Pain improved after toradol. Pt just started her antibiotics so instructed to continue it. Data Data Last Documented VS Vital Signs Date Time Temp Pulse Resp B/P (MAP) Pulse Ox O2 Delivery O2 Flow Rate FiO2 09/20/17 20:47 83 16 137/90 (106) 98 09/20/17 18:06 98.5 Orders Orders Basic Metabolic Panel (Bmp) (09/20/17 19:12) Complete Blood Count With Diff (09/20/17 19:12) Lactic Acid (09/20/17 19:12) Iv Access Insert/Monitor (09/20/17 19:12) Ed Urine Pregnancytest Poc (09/20/17 19:12) Blood Culture (09/20/17 19:12) Wound Culture And Gram Stain (09/20/17 19:12) Elbow, Complete (4 Vws) (09/20/17 ) Ketorolac Inj (Toradol Inj) (09/20/17 20:30) Labs Laboratory Tests Test 09/20/17 19:30 White Blood Count 8.3 TH/MM3 Red Blood Count 5.27 MIL/MM3 Hemoglobin 13.0 GM/DL Hematocrit 39.9 % Mean Corpuscular Volume 75.6 FL Mean Corpuscular Hemoglobin 24.7 PG Mean Corpuscular Hemoglobin Concent 32.7 % Red Cell Distribution Width 14.5 % Platelet Count 224 TH/MM3 Mean Platelet Volume 9.4 FL Neutrophils (%) (Auto) 65.9 % Lymphocytes (%) (Auto) 26.4 % Monocytes (%) (Auto) 5.2 % Eosinophils (%) (Auto) 1.0 % Basophils (%) (Auto) 1.5 % Neutrophils # (Auto) 5.5 TH/MM3 Lymphocytes # (Auto) 2.2 TH/MM3 Monocytes # (Auto) 0.4 TH/MM3 Eosinophils # (Auto) 0.1 TH/MM3 Basophils # (Auto) 0.1 TH/MM3 CBC Comment AUTO DIFF Differential Comment AUTO DIFF CONFIRMED Blood Urea Nitrogen 7 MG/DL Creatinine 0.77 MG/DL Random Glucose 82 MG/DL Calcium Level 9.0 MG/DL Sodium Level 139 MEQ/L Potassium Level 3.4 MEQ/L Chloride Level 106 MEQ/L Carbon Dioxide Level 22.3 MEQ/L Anion Gap 11 MEQ/L Estimat Glomerular Filtration Rate 109 ML/MIN Lactic Acid Level 1.0 mmol/L MDM Supervised Visit with ELIAZAR: Yes Diagnosis Primary Impression: Cellulitis of right arm Referrals: Primary Care Physician Patient Instructions: General Instructions, Cellulitis (ED), Heat Pack Application (ED) Departure Forms: Tests/Procedures Additional Instruction: Continue Bactrim and Keflex as directed. Pain medication as needed. Follow up with your primary doctor in 1-2 days. Return to the emergency department if you develop new or worsening symptoms such as fever, increasing pain, decreased range of motion of the arm Scripts Ibuprofen (Ibuprofen) 800 Mg Tab 800 MG PO Q6HR Y for PAIN, #20 TAB 0 Refills Prov: Ami Rivera 09/20/17 Disposition: 01 DISCHARGE HOME Condition: Stable Torri Barba Sep 20, 2017 20:40
[2017-09-20 20:47] VITALS: BP 137/90
== END 2017-09-20 20:49 | disposition home or self-care (01) ==
LOC: PHEFT 17:47
DX: L03.113 Cellulitis of right upper limb (principal); A49.01 Methicillin susceptible Staphylococcus aureus infection, unspecified site; F41.9 Anxiety disorder, unspecified
CPT/HCPCS: 73080; 80048; 83605; 84703; 85025; 86403; 87040; 87070; 87186; 96374; 99284; J1885; 87205